=== PATIENT | male | born 1995 | race African-American/Black ===

== ENCOUNTER 2017-06-19 19:35 | Emergency (ER) | payer OTHER, SELFPAY | END 2017-06-19 20:07 | disposition home or self-care (01) | LOC: SCSER 19:35 | DX: K08.89 Other specified disorders of teeth and supporting structures (principal); J45.909 Unspecified asthma, uncomplicated; Z79.899 Other long term (current) drug therapy | CPT/HCPCS: 99282 ==

== ENCOUNTER 2017-08-28 18:49 | Emergency (ER) | payer OTHER, SELFPAY ==
[2017-08-28] MEDS ORDERED: Fluorescein Opthalmic Strip ONE (18:55)
[2017-08-28] MEDS ORDERED: Proparacaine 0.5% Opth 15 ML BOT ONE (18:55)
[2017-08-28] MEDS ORDERED: HYDROcodone/Acetaminophen 5/325 mg Tablet ONE (19:39)
== END 2017-08-28 19:45 | disposition home or self-care (01) ==
LOC: ERS 18:49
DX: H18.821 Corneal disorder due to contact lens, right eye (principal); J45.909 Unspecified asthma, uncomplicated
CPT/HCPCS: 99283

== ENCOUNTER 2021-01-09 08:48 | Emergency (ER) | payer OTHER, SELFPAY | END 2021-01-09 09:22 | disposition home or self-care (01) | LOC: ERS 08:48 | DX: S39.011A Strain of muscle, fascia and tendon of abdomen, initial encounter (principal); K40.90 Unilateral inguinal hernia, without obstruction or gangrene, not specified as recurrent; X50.1XXA Overexertion from prolonged static or awkward postures, initial encounter; Y99.0 Civilian activity done for income or pay; J45.909 Unspecified asthma, uncomplicated | CPT/HCPCS: 99283 ==

== ENCOUNTER 2021-02-05 02:00 | Emergency (ER) | payer SELFPAY | END 2021-02-05 04:10 | disposition home or self-care (01) | LOC: ERS 02:00 | DX: R00.2 Palpitations (principal); E86.0 Dehydration; J45.909 Unspecified asthma, uncomplicated; K21.9 Gastro-esophageal reflux disease without esophagitis | CPT/HCPCS: 71046; 93005 ==

== ENCOUNTER 2021-02-06 06:38 | Emergency (ER) | payer SELFPAY | END 2021-02-06 07:26 | disposition home or self-care (01) | LOC: ERS 06:38 | DX: R00.2 Palpitations (principal); R59.0 Localized enlarged lymph nodes; J45.909 Unspecified asthma, uncomplicated; K21.9 Gastro-esophageal reflux disease without esophagitis | CPT/HCPCS: 99284 ==